=== PATIENT | male | born 1945 | race Caucasian/White ===

== ENCOUNTER 2016-10-08 23:24 | Emergency (ER) | payer OTHER ==
[~2016-10-08] VITALS: Ht 177.8 cm; Wt 81.0 kg
[2016-10-08 23:45] VITALS: BP 142/79; PULSE 66; RESP 18; TEMP 98.4; O2SAT 96
[2016-10-08] MEDS ORDERED: ATEN25TA PO (23:45)
[2016-10-08] MEDS ORDERED: PRIL20CA9 PO (23:45)
[2016-10-08] MEDS ORDERED: ASPI1TAB69 PO (23:45)
[2016-10-09] MEDS ORDERED: SODIUM CHLORIDE 0.9% FLUSH 5 ML FLUSH IVF PRN
[2016-10-09 00:05] VITALS: RESP 18; O2SAT 96
[2016-10-09 00:22] LABS: AUTOMATED NEUTROPHIL # 3.3 TH/MM3 (1.8-7.7); BASOPHIL # 0.2 TH/MM3 (0-0.2); BASOPHIL % 3.9 % (0.0-2.0); EOSINOPHIL # 0.1 TH/MM3 (0-0.4); EOSINOPHIL % 2.1 % (0.0-4.0); HEMATOCRIT 42.2 % (39.0-51.0); HEMO FLAGS DIFF FINAL; LYMPH % 34.8 % (9.0-44.0); LYMPHOCYTE # 2.1 TH/MM3 (1.0-4.8); MEAN CELL VOLUME 95.7 FL (80.0-100.0); MEAN CORPUSCULAR HEMOGLOBIN 32.9 PG (27.0-34.0); MEAN CORPUSCULAR HGB CONC 34.4 % (32.0-36.0); MONO % 7.6 % (0.0-8.0); NEUT % 51.6 % (16.0-70.0); PLATELET COUNT 163 TH/MM3 (150-450); RED BLOOD COUNT 4.41 MIL/MM3 (4.50-5.90); RED CELL DISTRIBUTION WIDTH 12.5 % (11.6-17.2); WHITE BLOOD COUNT 6.2 TH/MM3 (4.0-11.0)
[2016-10-09 00:30] LABS: CHLORIDE 109 MEQ/L (98-107); POTASSIUM 3.8 MEQ/L (3.5-5.1); SODIUM (NA) 144 MEQ/L (136-145)
[2016-10-09 00:33] LABS: ANION GAP 11 MEQ/L (5-15); BICARBONATE 23.8 MEQ/L (21.0-32.0); BLOOD UREA NITROGEN 21 MG/DL (7-18); MAGNESIUM 2.1 MG/DL (1.5-2.5)
[2016-10-09 00:35] LABS: APTT (PATIENT) 27.3 SEC (24.3-30.1); INTERNATIONAL NORMALIZED RATIO 0.9 RATIO; PROTHROMBIN TIME - PATIENT 10.2 SEC (9.8-11.6)
[2016-10-09 00:37] LABS: GLOMERULAR FILTRATION RATE 66 ML/MIN (>89)
[2016-10-09 00:40] LABS: CREATINE KINASE 173 U/L (39-308)
[2016-10-09 00:42] VITALS: BP_SYST 128; BP_SYST 131; BP_DIAS 74; BP_DIAS 78
[2016-10-09 00:45] VITALS: BP 128/78; PULSE 62; RESP 18; O2SAT 96
[2016-10-09 00:52] LABS: CKMB 2.5 NG/ML (0.5-3.6)
--- NOTE | 2016-10-09 01:22 | PD ---
HPI Chief Complaint: Cardiac Complaint Time Seen by Provider: 23:34 Travel History International Travel<30 days: No Contact w/Intl Traveler<30days: No Traveled to known affect area: No History of Present Illness HPI 71 yo M c/o palpitation for approx 6 hours. They are constant. He's had some epigastric pressure like discomfort for a few hours now. Onset at rest. Dyspnea /shortness of breath. There is no radiation of the pain. Severity is mild to moderate. The patient reports an evaluation in a hospital in [place] about one month prior including serial enzymes and a nuclear medicine stress test which reportedly were normal. His doctor increased his atenolol dosing implanted for Holter monitor evaluation here PFSH Past Medical History Hx Anticoagulant Therapy: Yes Heart Rhythm Problems: Yes (palpatations) Cardiovascular Problems: Yes Diminished Hearing: No GERD: Yes Immunizations Current: Yes Tetanus Vaccination: < 5 Years Past Surgical History Tonsillectomy: Yes Social History Alcohol Use: Yes Tobacco Use: No Substance Use: No Allergies-Medications (Allergen,Severity, Reaction): Coded Allergies: Penicillin (Verified Allergy, Severe, rash, 10/08/16) Reported Meds & Prescriptions Reported Meds & Active Scripts Active Ibuprofen 400 Mg Tab 400 Mg PO Q8H PRN Atenolol 50 Mg Tab 50 Mg PO DAILY Reported Atenolol 25 Mg Tab 25 Mg PO DAILY Prilosec (Omeprazole) 20 Mg Cap 20 Mg PO DAILY Aspirin 81 Mg Tabdr 81 Mg PO DAILY Review of Systems Except as stated in HPI: all other systems reviewed are Neg Physical Exam Narrative GENERAL: WNWD, 71 yo male, NAD SKIN: Warm and dry. HEAD: Atraumatic. Normocephalic. EYES: Pupils equal and round. No scleral icterus. No injection or drainage. ENT: No nasal bleeding or discharge. Mucous membranes pink and moist. NECK: Trachea midline. No JVD. CARDIOVASCULAR: Irregular rhythm. Rate approx 60s. RESPIRATORY: No accessory muscle use. Clear to auscultation. Breath sounds equal bilaterally. GASTROINTESTINAL: Abdomen soft, non-tender, nondistended. Hepatic and splenic margins not palpable. MUSCULOSKELETAL: Extremities without clubbing, cyanosis, or edema. No obvious deformities. Bilateral varicosities with tenderness on R side. NEUROLOGICAL: Awake and alert. No obvious cranial nerve deficits. Motor grossly within normal limits. Five out of 5 muscle strength in the arms and legs. Normal speech. PSYCHIATRIC: Appropriate mood and affect; insight and judgment normal. Data Data Last Documented VS Vital Signs Date Time Temp Pulse Resp B/P Pulse Ox O2 Delivery O2 Flow Rate FiO2 10/09/16 03:08 64 18 96 10/09/16 03:07 147/74 Room Air 10/08/16 23:45 98.4 Orders Electrocardiogram (10/08/16 23:58) Basic Metabolic Panel (Bmp) (10/08/16 23:58) Ckmb (Isoenzyme) Profile (10/08/16 23:58) Complete Blood Count With Diff (10/08/16 23:58) Magnesium (Mg) (10/08/16 23:58) Prothrombin Time / Inr (Pt) (10/08/16 23:58) Act Partial Throm Time (Ptt) (10/08/16 23:58) Troponin I (10/08/16 23:58) Ecg Monitoring (10/08/16 23:58) Bilateral Bp Monitoring (10/08/16 23:58) Iv Access Insert/Monitor (10/08/16 23:58) Oximetry (10/08/16 23:58) Oxygen Administration (10/08/16 23:58) Sodium Chloride 0.9% Flush (Ns Flush) (10/09/16 00:00) Us Leg Venous Doppler Bilat (10/08/16 ) CKMB (10/09/16 00:05) CKMB% (10/09/16 00:05) Labs Laboratory Tests Test 10/09/16 00:05 White Blood Count 6.2 TH/MM3 Red Blood Count 4.41 MIL/MM3 Hemoglobin 14.5 GM/DL Hematocrit 42.2 % Mean Corpuscular Volume 95.7 FL Mean Corpuscular Hemoglobin 32.9 PG Mean Corpuscular Hemoglobin 34.4 % Concent Red Cell Distribution Width 12.5 % Platelet Count 163 TH/MM3 Mean Platelet Volume 8.3 FL Neutrophils (%) (Auto) 51.6 % Lymphocytes (%) (Auto) 34.8 % Monocytes (%) (Auto) 7.6 % Eosinophils (%) (Auto) 2.1 % Basophils (%) (Auto) 3.9 % Neutrophils # (Auto) 3.3 TH/MM3 Lymphocytes # (Auto) 2.1 TH/MM3 Monocytes # (Auto) 0.5 TH/MM3 Eosinophils # (Auto) 0.1 TH/MM3 Basophils # (Auto) 0.2 TH/MM3 CBC Comment DIFF FINAL Differential Comment Prothrombin Time 10.2 SEC Prothromb Time International 0.9 RATIO Ratio Activated Partial 27.3 SEC Thromboplast Time Sodium Level 144 MEQ/L Potassium Level 3.8 MEQ/L Chloride Level 109 MEQ/L Carbon Dioxide Level 23.8 MEQ/L Anion Gap 11 MEQ/L Blood Urea Nitrogen 21 MG/DL Creatinine 1.10 MG/DL Estimat Glomerular Filtration 66 ML/MIN Rate Random Glucose 91 MG/DL Calcium Level 8.7 MG/DL Magnesium Level 2.1 MG/DL Total Creatine Kinase 173 U/L Creatine Kinase MB 2.5 NG/ML Troponin I LESS THAN 0.02 NG/ML MDM Medical Decision Making Medical Screen Exam Complete: Yes Emergency Medical Condition: Yes Medical Record Reviewed: Yes Differential Diagnosis electrolyte imbalance, supraventricular tachycardia, anemia, coronary disease Narrative Course CBC & BMP Diagram 10/09/16 00:05 Tn < 0.02 Coags 10.2 / 0.9 / 27.3 EKG sinus, occasional PACs, rate approx 70, normal axis Last 24 hours Impressions Lower Extremity Ultrasound 10/08/16 0000 Signed Impressions: Service Date/Time: Sunday, October 09, 2016 01:34 - CONCLUSION: 1. No evidence of deep venous thrombosis. 2. Superficial thrombophlebitis in varicosities in the medial right leg. Herve Felipe MD Palpitations reported throughout ER stay. Case d/w cardiology who advises increasing atenolol to 50mg daily. NSAIDs, ISAI, ICE for RLE superficial thrombophlebitis. Follow up with local cardiology. Return precautions discussed in some detail. Pt agreeable with plan and is considered safe for discharge. Diagnosis Primary Impression: Heart palpitations Additional Impression: Superficial thrombophlebitis Qualified Code: I80.01 - Thrombophlebitis of superficial veins of right lower extremity Referrals: Dennis Hernandez MD 1 day Additional Instructions: You have a choice when it comes to health care, and we are glad that you chose [facility]. Hopefully, we have met your expectations on today's visit. You are welcome to return to [facility] at any time, as we are committed to meeting the health care needs of our community. Med/Other Pt SpecificInfo: Prescription(s) given Scripts Ibuprofen 400 Mg Phd085 Mg PO Q8H PRN (PAIN SCALE 6 TO 10) #30 TAB Ref 0 Prov:Madan Erazo MD 10/09/16 Atenolol 50 Mg Tab50 Mg PO DAILY #30 TAB Ref 0 Prov:Madan Erazo MD 10/09/16 Disposition: 01 DISCHARGE HOME Condition: Stable Madan Erazo MD Oct 09, 2016 01:22
[2016-10-09 02:00] VITALS: BP 157/72; PULSE 61; RESP 18; O2SAT 96
--- NOTE | 2016-10-09 02:16 | RADHPO ---
EXAM DATE/TIME: 10/09/2016 01:34 [facility] COMPARISON: No previous studies available for comparison. INDICATIONS : Bilateral leg pain. MEDICAL HISTORY : Gastroesophageal reflux disease. Irregular heartbeat. Anticoagulant therapy. Varicose veins. SURGICAL HISTORY : Tonsillectomy. ENCOUNTER: Initial ACUITY: 1 day PAIN SCORE: 2/10 LOCATION: Bilateral legs. TECHNIQUE: Venous ultrasound of the left and right leg was performed from the inguinal ligament to the proximal calf. Real-time, color Doppler and spectral tracing, compression and augmentation techniques were us ed. FINDINGS: RIGHT LEG: There is normal compressibility of the deep venous system from the inguinal region to the proximal ca lf. No echogenic clot is seen in the lumen of the common femoral, femoral, popliteal, and posterior tibial veins. There is a normal response of the venous system to proximal and distal augmentation an d respiration. LEFT LEG: There is normal compressibility of the deep venous system from the inguinal region to the proximal ca lf. No echogenic clot is seen in the lumen of the common femoral, femoral, popliteal, and posterior tibial veins. There is a normal response of the venous system to proximal and distal augmentation an d respiration. CONCLUSION: 1. No evidence of deep venous thrombosis. 2. Superficial thrombophlebitis in varicosities in the medial right leg. Herve Felipe MD on October 09, 2016 at 2:13 Board Certified Radiologist. This report was verified electronically.
[2016-10-09] MEDS ORDERED: IBUP400T20 PO (02:51)
[2016-10-09] MEDS ORDERED: ATEN50TA PO (02:51)
[2016-10-09 03:07] VITALS: BP 147/74; PULSE 62; RESP 18; O2SAT 96
--- NOTE | 2016-10-09 17:53 | EKG ---
Date Performed: 10/09/2016 Time Performed: 00:12:06 PTAGE: 71 years EKG: Sinus rhythm with PAC(s). Poor R wave progression - probable normal variant Borderline ECG NO PREVIOUS TRACING DOCTOR: Kesha Merchant Interpretating Date/Time 10/09/2016 17:52:04
== END 2016-10-09 03:08 | disposition home or self-care (01) ==
LOC: PHED 23:24
DX: R00.2 Palpitations (principal); I80.01 Phlebitis and thrombophlebitis of superficial vessels of right lower extremity; K21.9 Gastro-esophageal reflux disease without esophagitis
CPT/HCPCS: 80048; 82550; 82552; 83735; 84484; 85025; 85610; 85730; 93005; 93970